=== PATIENT | male | born 1960 | race Caucasian/White ===

== ENCOUNTER 2023-12-16 09:23 | Inpatient (IN) | payer OTHER ==
[2023-12-16 09:54] VITALS: BMI 24.9
[2023-12-16] MEDS ORDERED: ACETAMINOPHEN 325 MG TABLET (FP) PO PRN (10:31)
[2023-12-16] MEDS ORDERED: guaiFENesin 600 MG TABLET.ER (FP) PO PRN (10:31)
[2023-12-16] MEDS ORDERED: LOPERAMIDE HCL 2 MG CAPSULE PO PRN (10:31)
[2023-12-16] MEDS ORDERED: MAGNESIUM HYDROX 2400MG/30ML ORAL SUSPENSION 30 ML CUP PO PRN (10:31)
[2023-12-16] MEDS ORDERED: NALOXONE HCL 0.4 MG/ML VIAL IM PRN (10:31)
[2023-12-16] MEDS ORDERED: MAG HYDROX/AL HYDROX/SIMETH 30 ML UNIT-DOSE CUP PO PRN (10:31)
[2023-12-16] MEDS ORDERED: BENZOCAINE/MENTHOL (CHLORASEPTIC ) LOZENGE MM PRN (10:31)
[2023-12-16] MEDS ORDERED: ONDANSETRON *ODT* 4 MG TABLET SL PRN (10:31)
[2023-12-16] MEDS ORDERED: IBUPROFEN 400 MG TABLET (FP) PO PRN (10:31)
[2023-12-16] MEDS ORDERED: BENZONATATE 200 MG CAPSULE PO PRN (10:31)
[2023-12-16] MEDS ORDERED: POLYETHYLENE GLYCOL (HEALTHYLAX) 3350 17 GM PACKET PO PRN (10:31)
[2023-12-16] MEDS ORDERED: NALOXONE (NARCAN) HCL 4 MG/0.1 ML SPRAY NS PRN (10:31)
[2023-12-16] MEDS ORDERED: chlordiazePOXIDE HCL 25 MG CAPSULE PO PRN (10:33)
[2023-12-16] MEDS ORDERED: chlordiazePOXIDE HCL 25 MG CAPSULE ONE (11:01)
[2023-12-16] MEDS: chlordiazePOXIDE HCL 25 MG CAPSULE PO SCH (11:04)
[2023-12-16] MEDS ORDERED: BISMUTH SUBSALICYLATE 262 MG/15 ML BTL PO PRN (11:06)
[2023-12-16] MEDS: hydrOXYzine PAMOATE 25 MG CAPSULE (FP) PO PRN (12:13)
[2023-12-16] MEDS: THIAMINE 100 MG TABLET PO SCH (22:41)
[2023-12-16] MEDS: MELATONIN 5 MG TABLETS PO SCH (22:42)
[2023-12-17] MEDS: PRENATAL VITAMINS W/ FOLIC ACID TABLET (FP) PO SCH (09:16)
[2023-12-17] MEDS: METHOCARBAMOL 500 MG TABLET PO PRN (09:17)
[2023-12-17 11:42] LABS: HEMOGLOBIN 11.5 GM/dL (11.7-16.9); MCH 25.3 pg (25.7-33.7); MEAN CELL VOLUME 79.1 fl (80-96); MEAN PLT VOLUME 8.1 fl (7.5-11.1); PLATELET COUNT 124 10^3/uL (134-434); RBC 4.55 M/mm3 (4.00-5.60); RDW 23.5 % (11.9-15.9); WHITE BLOOD COUNT 2.2 K/mm3 (4.0-10.0)
[2023-12-17 12:07] LABS: POTASSIUM 3.8 mmol/L (3.5-5.1)
[2023-12-17 12:12] LABS: ALBUMIN 3.7 g/dl (3.4-5.0); BLOOD UREA NITROGEN 12.4 mg/dL (7-18); CALCIUM 8.8 mg/dL (8.5-10.1)
[2023-12-17 12:15] LABS: CREATININE 0.7 mg/dL (0.55-1.3)
[2023-12-17 12:17] LABS: TOT PROT 7.6 g/dl (6.4-8.2)
[2023-12-18] MEDS: chlordiazePOXIDE HCL 25 MG CAPSULE PO SCH (05:50)
[2023-12-19] MEDS ORDERED: chlordiazePOXIDE HCL 10 MG CAPSULE PO PRN
[2023-12-19] MEDS: chlordiazePOXIDE HCL 10 MG CAPSULE PO SCH (05:13)
[2023-12-19] MEDS: IBUPROFEN 600 MG TABLET (FP) PO PRN (05:14)
[2023-12-19] MEDS ORDERED: amLODIPine BESYLATE 2.5 MG TABLET (FP) PO SCH (10:00)
[2023-12-19] MEDS: LOSARTAN POTASSIUM 50 MG TABLET PO SCH (10:17)
[2023-12-19] MEDS: NALTREXONE HCL 50 MG TABLET PO SCH (10:18)
[2023-12-19] MEDS: ACAMPROSATE CALCIUM 333 MG TABLET.DR PO SCH (13:36)
[2023-12-20] MEDS: chlordiazePOXIDE HCL 10 MG CAPSULE PO SCH (05:21)
[2023-12-20 11:49] LABS: HEMATOCRIT 35.4 % (35.4-49); MCH 25.7 pg (25.7-33.7); PLATELET COUNT 97 10^3/uL (134-434); RBC 4.27 M/mm3 (4.00-5.60); RDW 23.7 % (11.9-15.9); WHITE BLOOD COUNT 3.7 K/mm3 (4.0-10.0)
[2023-12-21] MEDS: chlordiazePOXIDE HCL 10 MG CAPSULE PO ONE (05:46)
[2023-12-21 15:26] VITALS: BP 169/88; PULSE 66; RESP 18; TEMP 98.6
== END 2023-12-21 12:50 | disposition home or self-care (01) | DRG 775 ==
LOC: YASAS 09:23 → Y6N 10:53
PROVIDERS: ADMIT Allergy & Immunology; ATTEND Surgery
PROC: HZ2ZZZZ Detoxification Services for Substance Abuse Treatment (ICD-10-PCS; principal; 2023-12-16)
DX: F10.230 Alcohol dependence with withdrawal, uncomplicated (principal); I10 Essential (primary) hypertension
CPT/HCPCS: 36415; 80053; 80305; 80307; 85027; 86780; 93005; 93010